=== PATIENT | female | born 1995 | race African-American/Black ===

== ENCOUNTER 2020-01-01 17:16 | Day surgery (SDC) | payer MEDICAID, OTHER ==
[~2020-01-01] VITALS: Ht 165.1 cm; Wt 46.7 kg
[2020-01-01 19:11] LABS: Urine WBC None Seen /hpf (0 - 5)
[2020-01-01 19:31] LABS: Urine Bacteria NONE SEEN /hpf (None Seen); Urine Blood TRACE /uL (Negative); Urine Mucus FEW (None Seen); Urine Specific Gravity 1.023 (1.001-1.035)
[2020-01-01 19:44] LABS: Basophils # (auto) 0 10 ^3/uL (0-0.2); Basophils % (auto) 0.6 % (0.0-2.0); Eosinophils # (auto) 0.1 10 ^3/uL (0-0.8); Eosinophils % (auto) 0.9 % (0.0-7.0); Hematocrit 19.8 % (36.0-46.0); Lymphocytes # (auto) 2.1 10 ^3/uL (0.4-5.4); Lymphocytes % (auto) 29.3 % (10.0-50.0); Mean Corpuscular Hemoglobin 26.9 pg (28.0-32.0); Mean Corpuscular Hgb Conc. 31.9 g/dL (32.0-36.0); Mean Corpuscular Volume 84.4 fL (80.0-100.0); Monocytes # (auto) 0.5 10 ^3/uL (0-1.3); Monocytes % (auto) 6.7 % (0.0-12.0); Neutrophils # (auto) 4.5 10 ^3/uL (1.6-8.6); Neutrophils % (auto) 62.5 % (37.0-80.0); Nucleated Red Blood Cells % 0.1 %; Platelet Count (auto) 341 10^3/uL (140-450); Red Blood Cells 2.35 10^6/uL (4.0-5.20); Red Cell Distribution Width 20.1 % (11.8-14.3); White Blood Cell 7.3 10^3/uL (4.4-10.8)
[2020-01-01 19:45] LABS: Hemoglobin 6.3 g/dL (12.2-16.2)
[2020-01-01] MEDS ORDERED: OXYTOCIN 10UNIT/ML 1ML VIAL IV SCH (22:00)
[2020-01-01] MEDS ORDERED: ceFAZolin 1GM/50ML 100 ML IV ONE (22:30)
[2020-01-01] MEDS ORDERED: LACT. RINGERS/OXYTOCIN 20UNITS 1,000 ML IV SCH (22:45)
[2020-01-01 22:49] LABS: INR 0.96 (0.9-1.15); Partial Thromboplastin Time 25.3 sec (23.64-32.05)
[2020-01-02] VITALS (8 sets, daily range): BP systolic 91–101; BP diastolic 48–69
[2020-01-02 06:09] LABS: Basophils # (auto) 0 10 ^3/uL (0-0.2); Eosinophils # (auto) 0.1 10 ^3/uL (0-0.8); Hematocrit 23.9 % (36.0-46.0); Hemoglobin 7.7 g/dL (12.2-16.2); Mean Corpuscular Hemoglobin 27.7 pg (28.0-32.0); Mean Corpuscular Hgb Conc. 32.4 g/dL (32.0-36.0); Monocytes # (auto) 0.5 10 ^3/uL (0-1.3); Neutrophils # (auto) 2.2 10 ^3/uL (1.6-8.6); Nucleated Red Blood Cells % 0.1 %; Red Blood Cells 2.79 10^6/uL (4.0-5.20); White Blood Cell 4.7 10^3/uL (4.4-10.8)
[2020-01-02 06:10] LABS: Basophils % (auto) 0.6 % (0.0-2.0); Eosinophils % (auto) 1.6 % (0.0-7.0); Lymphocytes % (auto) 41.3 % (10.0-50.0); Mean Corpuscular Volume 85.5 fL (80.0-100.0); Monocytes % (auto) 9.7 % (0.0-12.0); Neutrophils % (auto) 46.8 % (37.0-80.0); Platelet Count (auto) 218 10^3/uL (140-450); Red Cell Distribution Width 17.2 % (11.8-14.3)
[2020-01-02] MEDS ORDERED: ceFAZolin 1GM/50ML 50 ML IV ONE (07:31)
[2020-01-02] MEDS ORDERED: LACTATED RINGER'S 1,000 ML IV SCH (07:49)
[2020-01-02] MEDS ORDERED: RHO (D) IMMUNE GLOBULIN 300 MCG INJ IM PRN (08:00)
[2020-01-02] MEDS ORDERED: ONDANSETRON HCL 4 MG/2 ML VIAL IV PRN ×2 (08:00→08:45)
[2020-01-02] MEDS ORDERED: fentaNYL CITRATE 100 MCG/2 ML VL ONE (08:10)
[2020-01-02] MEDS ORDERED: MIDAZOLAM HCL 1MG/1ML-2 ML VIAL ONE (08:10)
[2020-01-02] MEDS ORDERED: PROPOFOL 10 MG/ML 20 ML IV ONE (08:12)
[2020-01-02] MEDS ORDERED: hydrALAZINE HCL 20 MG/ML VL IV PRN (08:45)
[2020-01-02] MEDS ORDERED: ePHEDrine SULFATE 50 MG/ML AMP IV PRN (08:45)
[2020-01-02] MEDS ORDERED: fentaNYL CITRATE 100 MCG/2 ML VL IV PRN (08:45)
== END 2020-01-02 10:30 | disposition home or self-care (01) ==
LOC: ER 17:16 → OR 1 17:17 → ER 22:33 → OR 1 01-02 08:34
PROVIDERS: ATTEND Obstetrics & Gynecology
DX: N93.9 Abnormal uterine and vaginal bleeding, unspecified (principal); O03.4 Incomplete spontaneous abortion without complication; D64.9 Anemia, unspecified; Z98.890 Other specified postprocedural states
CPT/HCPCS: 36415; 36430; 59812; 76801; 76817; 81001; 81025; 84702; 85025; 85610; 85730; 86850; 86900; 86901; 86920; 88305; J0690; J2250; J2590; J2704; J3010; P9016